=== PATIENT | female | born 1975 | race Caucasian/White ===

== ENCOUNTER 2021-07-28 04:28 | Day surgery (SDC) | payer BC, OTHER ==
[2021-07-23 11:20] VITALS: BMI 29.2
[2021-07-28] MEDS ORDERED: PROPOFOL 20 ML ONE ×3 (07:25)
[2021-07-28] MEDS ORDERED: FENTANYL CITRATE/PF 50 MCG/ML VIAL ONE ×5 (07:25→09:32)
[2021-07-28] MEDS ORDERED: SUCCINYLCHOLINE CHLORIDE 200 MG/10 ML SYRINGE ONE (07:26)
[2021-07-28] MEDS ORDERED: MIDAZOLAM HCL 2 MG/2 ML SINGLE DOSE VIAL ONE (07:26)
[2021-07-28] MEDS ORDERED: ONDANSETRON 4 MG/2 ML VIAL IVPUSH PRN ×2 (08:02→08:51)
[2021-07-28] MEDS ORDERED: oxyCODONE HCL 5 MG TABLET PO PRN ×2 (08:02→08:51)
[2021-07-28] MEDS ORDERED: VASOPRESSIN 20 UNITS/ML VIAL IV ONE (08:08)
[2021-07-28] MEDS ORDERED: LACTATED RINGERS SOLUTION 1,000 ML IV SCH (08:15)
[2021-07-28] MEDS ORDERED: GLYCOPYRROLATE 0.2 MG/1 ML VIAL ONE (08:23)
[2021-07-28] MEDS ORDERED: LIDOCAINE HCL/PF 2% SDV 5ML VIAL ONE (08:23)
[2021-07-28] MEDS ORDERED: KETOROLAC TROMETHAMINE 30 MG/1 ML VIAL ONE (08:23)
[2021-07-28] MEDS ORDERED: DEXAMETHASONE SOD PHOSPHATE 4 MG/1 ML VIAL ONE (08:23)
[2021-07-28] MEDS ORDERED: IBUPROFEN 800 MG/8 ML IJ IVPB PRN (08:51)
[2021-07-28] MEDS ORDERED: IBUPROFEN 600 MG TABLET (FP) PO PRN (08:51)
[2021-07-28] MEDS ORDERED: ELECTROLYTE-148 SOLN 1,000 ML IV SCH (09:00)
[2021-07-28] MEDS ORDERED: ONDANSETRON 4 MG/2 ML VIAL ONE (09:34)
[2021-07-28 15:36] VITALS: BP 129/85; PULSE 72; TEMP 98.3
== END 2021-07-28 14:00 | disposition home or self-care (01) ==
LOC: JASU-SURG 04:28
PROVIDERS: ATTEND Obstetrics & Gynecology
PROC: 0UDB8ZX Extraction of Endometrium, Via Natural or Artificial Opening Endoscopic, Diagnostic (ICD-10-PCS; 2021-07-28)
PROC: 0UB98ZZ Excision of Uterus, Via Natural or Artificial Opening Endoscopic (ICD-10-PCS; principal; 2021-07-28 07:30)
DX: D25.0 Submucous leiomyoma of uterus (principal); N95.0 Postmenopausal bleeding; R93.89 Abnormal findings on diagnostic imaging of other specified body structures
CPT/HCPCS: 81025; 88305-TC; 94760; C9803-CS; U0003; U0005